=== PATIENT | male | born 1990 | race Caucasian/White ===

== ENCOUNTER → 2019-06-16 14:21 | Outpatient (CLI) | payer OTHER, SELFPAY ==
--- NOTE | 2019-06-16 14:27 | XR_ITS ---
PROCEDURE: XR ANKLE WT BEARING LT MIN 3V CLINICAL INDICATION: fracture follow up COMPARISON: XR ANKLE LT MIN 3V from 05/04/2019 FINDINGS: The bony fragment at the anterior medial aspect of the talus is less apparent and may be due to bony resorption of the fracture fragment. Soft tissue swelling along the lateral malleolar region has improved. IMPRESSION: The avulsed fragment along the medial and anterior aspect of the talus is less apparent and may be due to underlying bony resorption otherwise negative Dictated by: Darwin Bravo MD 06/16/2019 14:56 Electronically signed by Darwin Bravo MD in [place] 06/16/2019 14:56
== END ==
PROVIDERS: Visit Provider Podiatrist
DX: S82.892D Other fracture of left lower leg, subsequent encounter for closed fracture with routine healing (principal); S93.492D Sprain of other ligament of left ankle, subsequent encounter; M25.472 Effusion, left ankle; M25.572 Pain in left ankle and joints of left foot
CPT/HCPCS: 73610

== ENCOUNTER → 2019-10-15 16:37 | Outpatient (CLI) | payer OTHER, SELFPAY ==
[2019-10-15 17:18] LABS: Alanine Aminotransferase 83 U/L (12-78); Albumin Level 4.6 g/dl (3.5-5.0); Albumin/Globulin Ratio 1.6 (1.1-1.8); Alkaline Phosphatase 83 U/L (38-126); Anion Gap 11.7 mEq/L (5-15); Aspartate Amino Transferase 64 U/L (17-59); Bilirubin,Total 0.7 mg/dl (0.2-1.3); Blood Urea Nitrogen 10 mg/dl (9-20); Calcium 10.2 mg/dl (8.4-10.2); Carbon Dioxide 27 mmol/L (22.0-30.0); Chloride 103 mmol/L (98-107); Chol/HDL Ratio 4.9 (1-3.5); Cholesterol 172 mg/dl (140-200); Estimated Glomerular Filt Rate 116 ml/min (>60); GFR (African American) 140 ML/MIN (>60); Globulin 2.8 g/dL (1.3-3.2); Glucose 118 mg/dl (74-100); HDL Cholesterol 35 mg/dl (40-60); Potassium 3.7 mmoL/L (3.5-5.1); Sodium 138 mmol/L (136-145); Total Protein,Serum 7.4 g/dl (6.3-8.2); Triglycerides 374 mg/dl (30-150); VLDL Cholesterol 75 mg/dL (0-40)
[2019-10-15 17:30] LABS: Direct LDL Cholesterol 91.92 mg/dL (100-129)
[2019-10-15 17:50] LABS: Thyroid Stimulating Hormone 1.45 uIU/mL (0.465-4.68)
[2019-10-15 18:28] LABS: Basophils # 0.1 K/mm3 (0-0.2); Basophils % 0.7 % (0.1-2.0); Eosinophils # 0.4 K/mm3 (0.0-0.4); Eosinophils % 4.7 % (0.1-12.0); Lymphocytes # 2.8 K/mm3 (0.7-4.5); Lymphocytes % 30.6 % (10-50); Mean Corpuscular HGB Conc 35.3 g/dL (31.8-35.4); Mean Corpuscular Hemoglobin 33.2 pg (27.0-31.2); Mean Corpuscular Volume 94.2 fl (80-94); Mean Platelet Volume 8.4 fl (7.4-10.4); Monocytes # 0.5 K/mm3 (0.1-1.0); Monocytes % 5.2 % (1.7-9.3); Neutrophils # 5.3 K/mm3 (1.8-7.8); Neutrophils % 58.8 % (37.0-80.0); Platelet Count 301 K/mm3 (142-424); Red Blood Count 5.63 M/mm3 (4.60-6.20); Red Cell Distribution Width 12.5 % (11.5-17.5)
[2019-10-15 18:36] LABS: Hemoglobin 18.7 g/dL (14.1-18.0)
[2019-10-17 06:53] LABS: Vitamin D 25 Hydroxy 11.2 ng/mL (30.0-100.0)
[2019-10-17 10:09] LABS: Hep A Ab, IgM Negative (Negative); Hepatitis B Core Antibody IgM Negative (Negative); Hepatitis B Surface Antigen Negative (Negative)
[2019-10-17 10:11] LABS: Hepatitis C Antibody <0.1 s/co ratio (0.0-0.9)
== END ==
PROVIDERS: Visit Provider Physician Assistant
DX: R74.8 Abnormal levels of other serum enzymes (principal); K08.89 Other specified disorders of teeth and supporting structures; E55.9 Vitamin D deficiency, unspecified; Z79.899 Other long term (current) drug therapy; F17.210 Nicotine dependence, cigarettes, uncomplicated; Z76.89 Persons encountering health services in other specified circumstances
CPT/HCPCS: 80053; 80061; 80074; 82652; 84436; 84443; 85025

== ENCOUNTER 2022-07-11 15:01 | Emergency (ER) | payer OTHER, SELFPAY ==
[2022-07-11 16:37] VITALS: BP 142/97; PULSE 88; RESP 16; TEMP 38.2; O2SAT 98; BMI 30.7
--- NOTE | 2022-07-11 16:40 | EXP.UTC ---
Discharge Plan Disposition Patient Disposition: Home, Self-Care Condition: Good Prescriptions Prescriptions: New tyxxmogwevckekm-hehiynbkl-HC [Bromfed DM] 2-30-10 mg/5 mL Syrup 5 ml PO Q6H PRN (Reason: Cough) Qty: 240 0RF oseltamivir [Tamiflu] 75 mg capsule 75 mg PO BID Qty: 10 0RF methylprednisolone 4 mg Tablets,Dose Pack 4 mg PO DIRECTED Qty: 21 0RF cefdinir 300 mg capsule 300 mg PO BID Qty: 20 0RF No Action ergocalciferol (vitamin D2) 1,250 mcg (50,000 unit) capsule 50,000 unit PO QWEEK 90 Days Qty: 12 0RF cholecalciferol (vitamin D3) 25 mcg (1,000 unit) capsule 1,000 unit PO DAILY Qty: 90 1RF Referrals Follow up/Referrals: [place] Finn MD [Primary Care Provider] - See instructions Activity Restrictions/Add. Instructions Additional Instructions/Restrictions: Drink plenty of fluids. Take tylenol or ibuprofen for pain or fever. Take the medications as directed. Follow up with your regular doctor. GO TO THE ER FOR ANY WORSENING SYMPTOMS Clinical Impressions Clinical Impression: Bronchitis, Pharyngitis Stand Alone Forms Stand Alone Forms: Work/School Release Instructions Patient Instructions: DI for Pharyngitis/Tonsillopharyngitis -- Adult, DI for Viral Syndrome Discharge ED Provider: Kyler Fox [facility] General Stated complaint: cough, [place], runny nose, fever Mode of Arrival: Ambulatory Source of Information: Patient Limitations: No Limitations Time Seen by Provider: 07/11/22 16:40 Description of Symptoms (Recalled from Triage Doc. by RN): pt comes in with c/o cough, headache, runny nose, fever. symptoms began a few days ago HEENT Symptoms (Recalled from RN notes): Yes Resp Symptoms (Recalled from RN notes): Yes Skin Symptoms (Recalled from RN notes): No MS Symptoms (Recalled from RN notes): No Functional Status (Recalled from RN notes): n/a History of Present Illness Provider Complaint: He states that for the past 2 days he has had fever, chills, sore throat, body aches and malaise. Related Data Previous Rx's Medication Instructions Recorded cholecalciferol (vitamin D3) 25 1,000 unit PO DAILY #90 caps 10/23/19 mcg (1,000 unit) capsule ergocalciferol (vitamin D2) 1,250 50,000 unit PO QWEEK 90 days #12 10/23/19 mcg (50,000 unit) capsule caps lcbcycgadofxjsu-noisixgtkggwbbp-AC 5 ml PO Q6H PRN Cough #240 mL 07/11/22 2 mg-30 mg-10 mg/5 mL oral syrup (Bromfed DM) cefdinir 300 mg capsule 300 mg PO BID #20 caps 07/11/22 methylprednisolone 4 mg tablets in 4 mg PO DIRECTED #21 tabs 07/11/22 a dose pack oseltamivir 75 mg capsule (Tamiflu) 75 mg PO BID #10 caps 07/11/22 Allergies Allergy/AdvReac Type Severity Reaction Status Date / Time No Known Allergies Allergy Verified 07/11/22 16:40 Worker's Comp Is this a Worker's Comp case?: No [facility] Disclaimer: The information contained in this section may have been updated after the patient was seen, as this information can be updated by other users. Social History Smoking Status: Current every day smoker tobacco type: cigarettes packs per day: 1 second hand exposure: Yes alcohol intake: never substance use type: marijuana current occupational status: other Travel in the last 8 weeks: Inside the [facility] housing: house ROS Obtained: Yes All systems reviewed & no additional complaints except as documented Constitutional Constitutional: Reports chills and Reports fever(s) Eyes Eyes: Denies eye discharge ENT Ears, Nose, Mouth, and Throat: Reports as per HPI Cardiovascular Cardiovascular: Denies chest pain Respiratory Respiratory: Denies chest congestion and Reports cough Gastrointestinal Gastrointestingal: Reports nausea; Denies abdominal pain, constipation, cramping, diarrhea or vomiting Musculoskeletal Musculoskeletal: Denies arthralgias Integumentary/Breasts Skin/Breast: Denies rash Neurologic Neuro
[2022-07-11 16:41] LABS: UTC Strep Screen (Rapid) Negative (Negative)
[2022-07-11 17:39] VITALS: BP 142/97; PULSE 88; RESP 16; TEMP 37.6
== END 2022-07-11 17:39 | disposition home or self-care (01) ==
PROVIDERS: Emergency Provider Nurse Practitioner Family; PCP Emergency Medicine
DX: J40 Bronchitis, not specified as acute or chronic (principal)
CPT/HCPCS: 87275; 87276; 87880; 99212; G0463